=== PATIENT | male | born 1990 | race Hispanic/Latino ===

== ENCOUNTER 2020-02-24 17:47 | Emergency (ER) | payer OTHER ==
[2020-02-24] MEDS ORDERED: LIDOCAINE HCL 1% 20 ML VIAL ONE (18:02)
[2020-02-24] MEDS ORDERED: CEFTRIAXONE SODIUM 1 GM ONE (18:43)
[2020-02-24] MEDS ORDERED: LIDOCAINE HCL-MPF 1% 2ML VIAL ONE (18:43)
== END 2020-02-24 19:00 | disposition home or self-care (01) ==
LOC: EDH 17:47
DX: S60.457A Superficial foreign body of left little finger, initial encounter (principal); W45.8XXA Other foreign body or object entering through skin, initial encounter; Y93.89 Activity, other specified; Y92.89 Other specified places as the place of occurrence of the external cause; Y99.8 Other external cause status
CPT/HCPCS: 73140; 96372; 99284; J0696; J3490